=== PATIENT | female | born 1990 | race Caucasian/White ===

== ENCOUNTER 2017-01-04 19:46 | Emergency (ER) | payer MEDICAID ==
[2017-01-04] MEDS ORDERED: NORMAL SALINE 1000 ML 1,000 ML IV ONE (20:31)
--- NOTE | 2017-01-04 20:32 | ER Document Report ---
ED Medical Screen (RME) - General Chief Complaint: Vomiting Stated Complaint: VOMITING Time Seen by Provider: 01/04/17 20:31 Notes: Patient states that today she had the sudden onset of left-sided abdominal pain with nausea and vomiting. No problems with stools or urine. No history of abdominal surgeries other than a . TRAVEL OUTSIDE OF THE [place] IN LAST 30 DAYS: No - Related Data Allergies/Adverse Reactions: No Known Allergies Allergy (Verified 01/04/17 20:25) Home Medications: Current Home Medications Metformin HCl 1 tab PO QHS 01/04/17 [History] Paroxetine HCl [Paxil 20 mg Tablet] 1 tab PO QHS 01/04/17 [History] Past Medical History Renal/ Medical History: Denies: Hx Peritoneal Dialysis - Immunizations Hx Diphtheria, Pertussis, Tetanus Vaccination: Yes Physical Exam - Vital signs Vitals: Temp Pulse Resp BP Pulse Ox 98.6 F 64 20 142/93 H 98 01/04/17 20:13 01/04/17 20:13 01/04/17 20:13 01/04/17 20:13 01/04/17 20:13 Course - Vital Signs Vital signs: Temp Pulse Resp BP Pulse Ox 98.6 F 64 20 142/93 H 98 01/04/17 20:13 01/04/17 20:13 01/04/17 20:13 01/04/17 20:13 01/04/17 20:13
[2017-01-04 21:26] LABS: ABSOLUTE BASOPHILS # (AUTO) 0.2 10^3/uL (0.0-0.2); ABSOLUTE EOSINOPHILS # (AUTO) 0.8 10^3/uL (0.0-0.6); ABSOLUTE LYMPHOCYTES (AUTO) 4.5 10^3/uL (0.5-4.7); ABSOLUTE MONOCYTES (AUTO) 1.2 10^3/uL (0.1-1.4); BASOPHILS % (AUTO) 1.2 % (0-2); HEMATOCRIT 46.2 % (36.0-47.0); HEMOGLOBIN 16.1 g/dL (12.0-15.5); HGB HCT DIFFERENCE 2.1; LYMPHOCYTES % (AUTO) 26.7 % (13-45); MEAN CORPUSCULAR HEMOGLOBIN 30.4 pg (27.0-33.4); MEAN CORPUSCULAR HGB CONC 34.9 g/dL (32.0-36.0); MEAN CORPUSCULAR VOLUME 87 fl (80-97); MONOCYTES % (AUTO) 7.2 % (3-13); RED CELL DISTRIBUTION WIDTH 13.3 % (11.5-14.0); SEGMENTED NEUTROPHILS % (AUTO) 59.9 % (42-78); WHITE BLOOD COUNT 16.7 10^3/uL (4.0-10.5)
--- NOTE | 2017-01-04 21:33 | ER Document Report ---
ED General - General Chief Complaint: Vomiting Stated Complaint: VOMITING Time Seen by Provider: 01/04/17 20:31 Notes: Patient is a 26-year-old female presents emergency department complaining of lower abdominal pain after eating pizza earlier this afternoon and approximately 6 episodes of emesis. Patient denies any right upper quadrant pain or epigastric pain and states that she knows a dull ache in her lower abdomen. Patient states that she does have history of PCOS. States that her last mental period was approximately 3 weeks ago. TRAVEL OUTSIDE OF THE [place] IN LAST 30 DAYS: No - Related Data Allergies/Adverse Reactions: No Known Allergies Allergy (Verified 01/04/17 20:25) Home Medications: Current Home Medications Metformin HCl 1 tab PO QHS 01/04/17 [History] Paroxetine HCl [Paxil 20 mg Tablet] 1 tab PO QHS 01/04/17 [History] Past Medical History - Social History Smoking Status: Smoker,Current Status Unk Family History: Reviewed & Not Pertinent Patient has suicidal ideation: No Patient has homicidal ideation: No Renal/ Medical History: Denies: Hx Peritoneal Dialysis Past Surgical History: Reports: Hx Section - Immunizations Hx Diphtheria, Pertussis, Tetanus Vaccination: Yes Review of Systems - Review of Systems Constitutional: No symptoms reported Cardiovascular: No symptoms reported Respiratory: No symptoms reported Gastrointestinal: See HPI - For review -: Yes All other systems reviewed and negative Physical Exam - Vital signs Vitals: Temp Pulse Resp BP Pulse Ox 98.6 F 64 20 142/93 H 98 01/04/17 20:13 01/04/17 20:13 01/04/17 20:13 01/04/17 20:13 01/04/17 20:13 - Notes Notes: PHYSICAL EXAM GENERAL: Alert, interacts well. HEAD: Normocephalic, atraumatic. EYES: Pupils equal, round, and reactive to light. Extraocular movements intact. ENT: Oral mucosa moist, tongue midline. NECK: Full range of motion. Supple. Trachea midline. LUNGS: Clear to auscultation bilaterally, no wheezes, rales, or rhonchi. No respiratory distress. HEART: Regular rate and rhythm. No murmurs, gallops, or rubs. ABDOMEN: Soft, nondistended, nontender. No guarding, rebound, or rigidity.. Bowel sounds present in all 4 quadrants. EXTREMITIES: Moves all 4 extremities spontaneously. No edema, radial and dorsalis pedis pulses 2/4 bilaterally. No cyanosis. NEUROLOGICAL: Alert and oriented x4. Normal speech. PSYCH: Normal affect, normal mood. SKIN: Warm, dry, normal turgor. No rashes or lesions noted. Course - Re-evaluation Re-evalutation: 01/04/17 22:00 Patient is a 26-year-old female is hemodynamically stable, no acute distress afebrile. Mild elevation in CBC white blood cell count likely related to patient's emesis without evidence of left shift. Chemistry panel all normal without evidence of acute kidney injury, elevation in LFTs or lipase. Urinalysis no evidence of , urinary tract infection. Patient clinically feels much better after IV fluids and nausea medication. given the patient has a history of PCOS and is likely due for her period next week likely related to that otherwise patient is hemodynamically stable for discharge. - Vital Signs Vital signs: Temp Pulse Resp BP Pulse Ox 98.6 F 78 18 123/65 99 01/04/17 20:13 01/04/17 23:25 01/04/17 23:25 01/04/17 23:25 01/04/17 23:25 - Laboratory Result Diagrams: 01/04/17 21:15 01/04/17 21:50 Laboratory results interpreted by me: 01/04/17 01/04/17 21:15 21:50 WBC 16.7 H RBC 5.30 H Hgb 16.1 H Absolute Neutrophils 10.0 H Absolute Eosinophils 0.8 H Calcium 11.1 H - Diagnostic Test Radiology reviewed: Image reviewed, Reports reviewed Discharge - Discharge Clinical Impression: Vomiting Qualifiers: Vomiting type: unspecified Vomiting Intractability: non-intractable Nausea presence: with nausea Qualified Code(s): R11.2 - Nausea with vomiting, unspecified Condition: Good Disposition: HOME, SELF-CARE Instructions: Abdominal Pain ([facility]), Antinausea Medication ([facility]), Intravenous ( IV) Fluids ([facility]), Vomiting ([facility]) Additional Instructions: Patients should be encouraged to eat as tolerated. Smaller meals may be less likely to induce vomiting than larger ones. Henry, low residue foods may also be better tolerated than others. For healthy adults with acute viral gastroenteritis without signs of dehydration , sport drinks, diluted fruit juices, and other flavored soft drinks augmented with saltine crackers and broths or soups can meet the fluid and salt needs in almost all cases. Broiled starches/cereals (potatoes, noodles, rice, wheat, and oat) with some salt are excellent foods to consider. In addition, crackers, bananas, yogurt, soups, and boiled vegetables can also be consumed. Prescriptions: Ondansetron [Zofran Odt 4 mg Tablet] 1 - 2 tab PO Q4H PRN #15 tab.rapdis PRN Reason: For Nausea/Vomiting Forms: Return to Work
[2017-01-04] MEDS ORDERED: MORPHINE SULFATE 10 MG/ML INJ IV ONE (22:20)
[2017-01-04 22:35] LABS: ALANINE AMINOTRANSFERASE 38 U/L (9-52); ALKALINE PHOSPHATASE 68 U/L (38-126); ANION GAP 11 (5-19); ASPARTATE AMINO TRANSFERASE 19 U/L (14-36); BILIRUBIN,DIRECT 0.4 mg/dL (0.0-0.4); BILIRUBIN,TOTAL 0.4 mg/dL (0.2-1.3); BLOOD UREA NITROGEN 9 mg/dL (7-20); CALCIUM 11.1 mg/dL (8.4-10.2); CARBON DIOXIDE 28 mmol/L (22-30); CHLORIDE 103 mmol/L (98-107); GLUCOSE 93 mg/dL (75-110); POTASSIUM 3.9 mmol/L (3.6-5.0); TOTAL PROTEIN 6.5 g/dL (6.3-8.2)
[2017-01-04 22:40] LABS: APPEARANCE,URINE CLEAR; BILIRUBIN,URINE NEGATIVE (NEGATIVE); GLUCOSE, URINE NEGATIVE (NEGATIVE); KETONES,URINE NEGATIVE (NEGATIVE); LEUKOCYTE ESTERASE,URINE NEGATIVE (NEGATIVE); NITRITE,URINE NEGATIVE (NEGATIVE); PROTEIN,URINE NEGATIVE (NEGATIVE); URINE SPECIFIC GRAVITY 1.005; UROBILINOGEN,URINE NEGATIVE mg/dL (<2.0)
[2017-01-04] MEDS ORDERED: ONDANSETRON HCL INJ/PF 4 MG/2 ML SDV IV ONE (22:42)
--- NOTE | 2017-01-04 23:00 | RADIOLOGY REPORT (SQ) ---
EXAM DESCRIPTION: ACUTE ABDOMEN SERIES COMPLETED DATE/TIME: 01/04/2017 10:53 pm REASON FOR STUDY: lower abdominal pain, nausea COMPARISON: None. NUMBER OF VIEWS: Three views. TECHNIQUE: Frontal chest, supine abdomen and upright/decubitus abdomen radiographic images acquired. LIMITATIONS: None. FINDINGS: CHEST: Lungs clear of infiltrates. FREE AIR: None. No abnormal gas collections. BOWEL GAS PATTERN: Nonobstructive pattern. No dilated loops or air fluid levels. CALCIFICATIONS: No suspicious calcifications. HARDWARE: None in the abdomen. SOFT TISSUES: No gross mass or suggestion of organomegaly. BONES: No acute fracture. No worrisome bone lesions. OTHER: No other significant finding. IMPRESSION: NO RADIOGRAPHIC EVIDENCE FOR ACUTE ABDOMINAL DISEASE. TECHNICAL DOCUMENTATION: JOB ID: [id number] [employer]- All Rights Reserved
[2017-01-04 23:26] VITALS: BP 123/65
== END 2017-01-04 23:25 | disposition home or self-care (01) ==
LOC: ER 19:46
DX: R11.2 Nausea with vomiting, unspecified (principal); E28.2 Polycystic ovarian syndrome; R10.30 Lower abdominal pain, unspecified; D72.829 Elevated white blood cell count, unspecified
CPT/HCPCS: 99284; 96361; 96374; 36415; 83690; 85025; 81025; 80053; 81001; 74022; J2270; J7030

== ENCOUNTER → 2017-02-28 | Emergency (ER) | payer SELFPAY ==
--- NOTE | 2017-03-01 09:51 | RADIOLOGY REPORT (SQ) ---
EXAM DESCRIPTION: CHEST PA/LAT COMPLETED DATE/TIME: 03/01/2017 3:12 am REASON FOR STUDY: COUGH/FEVER COMPARISON: None. TECHNIQUE: Frontal and lateral radiographic views of the chest acquired. NUMBER OF VIEWS: Two view. LIMITATIONS: None. FINDINGS: LUNGS AND PLEURA: No evidence of consolidating infiltrate , pleural effusion , or pn eumothorax. MEDIASTINUM AND HILAR STRUCTURES: No masses or contour abnormalities. HEART AND VASCULATURE: Heart normal size. No evidence for failure. BONY STRUCTURES: No acute findings. HARDWARE: None. OTHER: No other significant finding. IMPRESSION: NO SIGNIFICANT RADIOGRAPHIC FINDING IN THE CHEST. TECHNICAL DOCUMENTATION: JOB ID: [id number]
== END ==
LOC: ER 12:03
DX: J06.9 Acute upper respiratory infection, unspecified (principal); R06.2 Wheezing; R50.9 Fever, unspecified; R05 Cough; R09.81 Nasal congestion; R09.89 Other specified symptoms and signs involving the circulatory and respiratory systems; F17.200 Nicotine dependence, unspecified, uncomplicated
CPT/HCPCS: 71046; 99283

== ENCOUNTER 2017-05-28 03:07 | Emergency (ER) | payer SELFPAY ==
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
[2017-05-28 03:44] LABS: ABSOLUTE BASOPHILS # (AUTO) 0.1 10^3/uL (0.0-0.2); ABSOLUTE EOSINOPHILS # (AUTO) 0.2 10^3/uL (0.0-0.6); ABSOLUTE LYMPHOCYTES (AUTO) 2.3 10^3/uL (0.5-4.7); ABSOLUTE NEUT (AUTO) 9.1 10^3/uL (1.7-8.2); BASOPHILS % (AUTO) 1.2 % (0-2); EOSINOPHILS % (AUTO) 1.9 % (0-6); HEMATOCRIT 43.2 % (36.0-47.0); HEMOGLOBIN 15.2 g/dL (12.0-15.5); LYMPHOCYTES % (AUTO) 18.1 % (13-45); MEAN CORPUSCULAR HEMOGLOBIN 30.3 pg (27.0-33.4); MEAN CORPUSCULAR HGB CONC 35.3 g/dL (32.0-36.0); MEAN CORPUSCULAR VOLUME 86 fl (80-97); MONOCYTES % (AUTO) 7.8 % (3-13); PLATELET COUNT 296 10^3/uL (150-450); RED BLOOD COUNT 5.03 10^6/uL (3.72-5.28); RED CELL DISTRIBUTION WIDTH 12.7 % (11.5-14.0); TOTAL CELLS COUNTED % (AUTO) 100 %; WHITE BLOOD COUNT 12.8 10^3/uL (4.0-10.5)
[2017-05-28 03:52] LABS: ALANINE AMINOTRANSFERASE 43 U/L (9-52); ALBUMIN 4.6 g/dL (3.5-5.0); ALKALINE PHOSPHATASE 78 U/L (38-126); ANION GAP 15 (5-19); ASPARTATE AMINO TRANSFERASE 24 U/L (14-36); BILIRUBIN,DIRECT 0.2 mg/dL (0.0-0.4); BILIRUBIN,TOTAL 0.3 mg/dL (0.2-1.3); BLOOD UREA NITROGEN 6 mg/dL (7-20); CALCIUM 10.4 mg/dL (8.4-10.2); CARBON DIOXIDE 22 mmol/L (22-30); CHLORIDE 107 mmol/L (98-107); GLUCOSE 111 mg/dL (75-110); POTASSIUM 3.9 mmol/L (3.6-5.0); SODIUM 143.6 mmol/L (137-145); TOTAL PROTEIN 7.2 g/dL (6.3-8.2)
[2017-05-28 03:53] LABS: ACETAMINOPHEN < 10 ug/mL (10-30); ALCOHOL < 10 mg/dL (NONE DETECTED); SALICYLATE < 1.0 mg/dL (2.0-20.0)
[2017-05-28 05:22] LABS: APPEARANCE,URINE CLEAR; BILIRUBIN,URINE NEGATIVE (NEGATIVE); COLOR,URINE YELLOW; GLUCOSE, URINE NEGATIVE (NEGATIVE); KETONES,URINE NEGATIVE (NEGATIVE); LEUKOCYTE ESTERASE,URINE NEGATIVE (NEGATIVE); NITRITE,URINE NEGATIVE (NEGATIVE); PROTEIN,URINE NEGATIVE (NEGATIVE); URINE SPECIFIC GRAVITY 1.008; UROBILINOGEN,URINE NEGATIVE mg/dL (<2.0)
[2017-05-28] MEDS ORDERED: NICOTINE 14 MG/24 HR PATCH.TD24 TD ONE (05:27)
[2017-05-28 05:34] LABS: URINE AMPHETAMINES SCREEN NEGATIVE; URINE BARBITURATES SCREEN NEGATIVE; URINE BENZODIAZEPINES SCREEN NEGATIVE; URINE COCAINE SCREEN NEGATIVE; URINE MARIJUANA (THC) SCREEN NEGATIVE; URINE METHADONE SCREEN NEGATIVE; URINE PHENCYCLIDINE SCREEN NEGATIVE
[2017-05-28] MEDS ORDERED: NORMAL SALINE 1000 ML 1,000 ML IV ONE (06:36)
[2017-05-28] MEDS ORDERED: ONDANSETRON HCL INJ/PF 4 MG/2 ML SDV IV ONE (08:12)
--- NOTE | 2017-05-28 11:08 | ER Document Report ---
Doctor's Note Notes: 05/28/17 11:06 Rounds: Chart reviewed and patient interviewed. Being evaluated for an overdose of metformin, alprazolam, and hydrocodone. Says she intended to kill herself. Feels worsening depression and suicidal thoughts. She has been nauseated and vomiting and that her primary complaint at this time. Vital signs are all essentially normal. Lab studies showed a white count of 12,500 and a lactate level of 3.2, on repeat 2.4. Drug screen positive for opiates. Patient appears to be medically stable for transfer or discharge. Angelica Mayer MD
[2017-05-28] MEDS ORDERED: ONDANSETRON 4 MG TAB.RAPDIS PO PRN (11:45)
[2017-05-28] MEDS ORDERED: CITALOPRAM HYDROBROMIDE 20 MG TABLET PO SCH (15:00)
[2017-05-28] MEDS: BUSPIRONE HCL 10 MG TABLET PO SCH (18:24)
--- NOTE | 2017-05-28 21:01 | EKG REPORT ---
SEVERITY:- OTHERWISE NORMAL ECG - SINUS RHYTHM BORDERLINE LEFT AXIS DEVIATION : Confirmed by: Yoly Key 28-May-2017 21:00:55
[2017-05-29] MEDS ORDERED: CITALOPRAM HYDROBROMIDE 20 MG TABLET PO ONE (10:00)
--- NOTE | 2017-05-29 11:13 | ER Document Report ---
Doctor's Note Notes: 05/29/17 11:12 Patient has been examined by the behavior health team, recommendations from Dr. Prince are to start Celexa 20 mg daily and BuSpar 10 mg twice a day. At this point the patient is remorseful for having tried to commit suicide, states that she was feeling overwhelmed by her current circumstances, family has responded to phone call is by the behavioral health team and is supportive of the idea of the patient being discharged home, patient is also eager to be discharged to home. States she feels safe and does not feel like she will try to hurt herself again. Patient overdosed on metformin, her last set of labs at 7:30 AM still showed a remaining acidosis with lactic acid of 2.4 consistent with a metformin overdose. The behavioral health team feels she is cleared from the behavioral health standpoint however the patient is not yet medically cleared for discharge. Patient understands this and we will continue to track her lactic acid.
[2017-05-29] MEDS: BUSPIRONE HCL 10 MG TABLET PO SCH (11:15)
[2017-05-29 12:01] VITALS: BP 113/56
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
--- NOTE | 2017-05-29 12:42 | PSYCHOLOGICAL NOTE ---
Psych Note - Psych Note Psych Note: Reason for consult: Suicidal ideation, intentional overdose Consent Permissions: Lynsey Zamora, Mother 27-year-old female with a history of depression, anxiety, PCOS, asthma presents via EMS from home after taking Metformin, alprazolam and hydrocodone. Patient states she took one alprazolam, 3 hydrocodone's and an unknown amount of metformin with intentions of killing herself. Patient states she vomited approximately 30 minutes after taking the medications. Clinician conducted check in with patient Patient is sitting up in bed and smiling at clinician upon entering. When discussing therapeutic outpatient services patient stated "it is about that time , I need to talk to someone...This was so out there for me...I do not think it is actually hit me that I tried to actually kill myself." Patient disclosed that she has been having a lot of stress coming from her upcoming divorce. 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 She reports that trying to balance working, spending time with her son, studying, and watching her friend's son has been stressful. She continues to report the other night her friend/significant other "said very mean things to me...things I can't believe he said." Patient discloses she is nervous about her job and going home knowing her family is not happy with her. She reports her sister told her that when she comes home she "will not be left alone at all and I have no say it." Patient discloses she does not mind her family being overprotective right now and understands this is probably normal reaction to what she did. Clinician spoke with patient's mother, Lynsey, who disclosed the patient has a strong support network with family and all the family will be part of the discharge plan to ensure the patient does not have access to medications or weapons and follows up with her outpatient mental health services. Medication recommendations per [facility]'s contracted psychiatrist, Dr. Niki MD are as follows: 1. Celexa 20 mg daily for depression 2. BuSpar 10 mg twice daily for anxiety Diagnosis 311 (F32.9) unspecified depressive disorder V61.03 (Z63.5) disruption of family by separation and divorce Impression\\plan: Patient is recommended for rescind of IVC and is considered cleared from acute psychiatric services. Patient's mood is euthymic with congruent affect as evidenced by sitting up smiling and openly engaging with clinician and her environment. Patient has a strong support network with family who all agreed to ensure patient follows up with her mental health treatment. Patient denied suicidal ideation was able to demonstrate insight in identifying triggers and problemsolving in her treatment and positive changes to her psychosocial stressors. Patient openly and calmly discussed her concerns stemming from her intentional overdose i.e. family relations and her job. Patient is willing to follow-up with therapeutic services in addition to medication management. Dr. Christianson was consulted on the care and management of this patient; attending physician is in agreement with recommendations and disposition.
[2017-05-29] MEDS ORDERED: RINGERS SOLUTION,LACTATED 1,000 ML IV ONE (13:35)
[2017-05-29 15:54] LABS: ALANINE AMINOTRANSFERASE 42 U/L (9-52); ALBUMIN 4.3 g/dL (3.5-5.0); ALKALINE PHOSPHATASE 61 U/L (38-126); ANION GAP 13 (5-19); ASPARTATE AMINO TRANSFERASE 27 U/L (14-36); BILIRUBIN,DIRECT 0.3 mg/dL (0.0-0.4); BILIRUBIN,TOTAL 0.3 mg/dL (0.2-1.3); BLOOD UREA NITROGEN 11 mg/dL (7-20); CALCIUM 9.9 mg/dL (8.4-10.2); CARBON DIOXIDE 23 mmol/L (22-30); CHLORIDE 104 mmol/L (98-107); GLUCOSE 140 mg/dL (75-110); SODIUM 140.1 mmol/L (137-145); TOTAL PROTEIN 7.1 g/dL (6.3-8.2)
== END 2017-05-29 18:00 | disposition home or self-care (01) ==
LOC: ER 03:07
DX: T38.3X2A Poisoning by insulin and oral hypoglycemic [antidiabetic] drugs, intentional self-harm, initial encounter (principal); T42.4X2A Poisoning by benzodiazepines, intentional self-harm, initial encounter; T40.2X2A Poisoning by other opioids, intentional self-harm, initial encounter; R11.0 Nausea; R10.84 Generalized abdominal pain; X58.XXXA Exposure to other specified factors, initial encounter; Y92.009 Unspecified place in unspecified non-institutional (private) residence as the place of occurrence of the external cause; F32.9 Major depressive disorder, single episode, unspecified; F41.9 Anxiety disorder, unspecified; Z63.5 Disruption of family by separation and divorce
CPT/HCPCS: 93005; 99285; 96361; 96374; 36415; 82962; 80307 ×4; 84703; 85025; 80053; 81001; 83605; 93010; J2405; J7030

== ENCOUNTER 2018-07-27 09:38 | Emergency (ER) | payer SELFPAY ==
[2018-07-27 09:43] VITALS: BP 127/72
--- NOTE | 2018-07-27 09:54 | ER Document Report ---
HPI - HPI Time Seen by Provider: 07/27/18 09:49 Pain Level: 2 Notes: Patient is a 28-year-old female with a history of asthma who presents complaining of nasal congestion/discharge, postnasal drip, right worse than left ear pain, dry cough, and occasional diarrhea. Patient states that her cold symptoms have been for about 5 to 7 days with ear pain starting over the last 1 to 2 days. She is eating and drinking without difficulty. She is urinating normally. Denies drug allergies. No other concerns or complaints. Denies any headache, fever, neck pain, sore throat, chest pain, palpitations, syncope, shortness of breath, wheeze, dyspnea, abdominal pain, nausea/vomiting, urinary retention, dysuria, hematuria, or rash. - ROS Systems Reviewed and Negative: Yes All other systems reviewed and negative - REPRODUCTIVE Reproductive: DENIES: : Past Medical History - Social History Smoking Status: Current Every Day Smoker Family History: Reviewed & Not Pertinent, DM Pulmonary Medical History: Reports: Hx Asthma Renal/ Medical History: Denies: Hx Peritoneal Dialysis Psychiatric Medical History: Reports: Hx Anxiety, Hx Depression Past Surgical History: Reports: Hx Section - Immunizations Hx Diphtheria, Pertussis, Tetanus Vaccination: Yes Vertical Provider Document - CONSTITUTIONAL Agree With Documented VS: Yes Notes: PHYSICAL EXAMINATION: GENERAL: Well-appearing, well-nourished and in no acute distress. A&Ox4. Answers questions appropriately. Moves comfortably w/o notable distress HEAD: Atraumatic, normocephalic. EYES: Pupils equal round and reactive to light, extraocular movements intact, sclera anicteric, conjunctiva are normal. ENT: Lt EAC wnl. + mild inflammation and tenderness to rt EAC/Tragus. No mastoid tenderness. TM's intact b/l without erythema, fluid, or perforation. Nares patent and with clear discharge. oropharynx no erythema without exudates. No tonsilar hypertrophy without erythema or exudate. No palatine shift. Uvula midline. No tongue protrusion. No drooling, hoarseness, or airway compromise. Moist mucous membranes. No sinus tenderness. NECK: Normal range of motion, supple without lymphadenopathy. No rigidity/meningismus. LUNGS: Breath sounds clear to auscultation bilaterally and equal. No wheezes rales or rhonchi. No retractions HEART: Regular rate and rhythm without murmurs, rubs, gallops. ABDOMEN: Soft, nontender, nondistended abdomen. No guarding, no rebound. Normal bowel sounds present. No CVA tenderness bilaterally. NEUROLOGICAL: Normal speech, normal gait. PSYCH: Normal mood, normal affect. SKIN: Warm, Dry, normal turgor, no rashes or lesions noted. - INFECTION CONTROL TRAVEL OUTSIDE OF THE [place] IN LAST 30 DAYS: No Course - Re-evaluation Re-evalutation: 07/27/18 09:57 Patient is an afebrile, well-hydrated, 28-year-old female who presents to the emergency department with an acute URI which I suspect to be viral as well as a mild acute otitis externa of the right ear. Vitals are acceptable without significant tachycardia, tachypnea, or hypoxia. PE is otherwise unremarkable. Patient is nontoxic-appearing is able to tolerate p.o. without difficulty. No labs or imaging warranted at this time. Low suspicion for any sepsis, meningitis, severe dehydration, respiratory compromise, mastoiditis, or other systemic emergent condition at this time. Patient is aware that condition can change from initial presentation and she needs to monitor symptoms closely and seek medical attention with any acute changes. I will send her home with [facility] for Ciprodex. Conservative measures for symptoms otherwise. Recheck with your PCM in 3 to 5 days. Return to the ED with any other worsening/concerning symptoms. Patient is in agreement. - Vital Signs Vital signs: Temp Pulse Resp BP Pulse Ox 98.2 F 84 15 127/72 H 99 07/27/18 09:42 07/27/18 09:42 07/27/18 09:42 07/27/18 09:42 07/27/18 09:42 Discharge - Discharge Clinical Impression: Acute URI Otitis externa of right ear Qualifiers: Otitis externa type: unspecified type Chronicity: acute Qualified Code(s): H60.501 - Unspecified acute noninfective otitis externa, right ear Condition: Stable Disposition: HOME, SELF-CARE Instructions: Use of Ear Drops ([facility]), Otitis Externa ([facility]), Upper Respiratory Illness ([facility]) Additional Instructions: Maintain adequate fluid intake Take meds as directed tylenol/ibuprofen as needed Avoid Q-tips in the ears over the counter cold medication as needed for symptoms F/u: with your PCM in 3-5 days for a recheck Consider consult with ENT Return to the ED with any fever, dizziness, tinnitus, headaches, worsening pain, chest pain, palpitations, syncope, neck pain/stiffness, shortness of breath, wheezing, drooling, trouble swallowing/breathing, abdominal pain, n/v/d, rash, or worsening/concerning symptoms otherwise. Prescriptions: Ciprofloxacin HCl/Dexameth [Ciprodex Otic Suspension 7.5 ml Bottle] 4 drop OT BID #1 bottle Forms: Elevated Blood Pressure, Smoking Cessation Education, Return to Work Referrals: WAQAR LUNA DO [ASSOCIATE] - Follow up as needed [facility] [Provider Group] - Follow up as needed
== END 2018-07-27 10:00 | disposition home or self-care (01) ==
LOC: ER 09:38
DX: H60.501 Unspecified acute noninfective otitis externa, right ear (principal); J06.9 Acute upper respiratory infection, unspecified; R09.81 Nasal congestion; R09.82 Postnasal drip; R05 Cough; R19.7 Diarrhea, unspecified; J45.909 Unspecified asthma, uncomplicated
CPT/HCPCS: 99282

== ENCOUNTER 2018-08-28 16:21 | Emergency (ER) | payer SELFPAY ==
--- NOTE | 2018-08-28 17:30 | ER Document Report ---
ED Medical Screen (RME) - General Chief Complaint: Abdominal Pain Stated Complaint: RIGHT SIDE PAIN, VOMITING, DIARRHEA Time Seen by Provider: 08/28/18 17:25 Mode of Arrival: Ambulatory Information source: Patient Notes: Patient presents emergency department with complaints of right upper quad abdominal pain that started this morning. Reports she ate some eggs, started hurting thought it might be because she was hungry still, tried to eat some more but she could not because she was hurting. Reports she does have history of kidney stones once. Denies pain with void. Denies fever reports some vomiting diarrhea today. Patient right upper quad tender to palpation as well as right flank. I have greeted and performed a rapid initial assessment of this patient. A comprehensive ED assessment and evaluation of the patient, analysis of test results and completion of the medical decision making process will be conducted by additional ED providers. Dictation of this chart was performed using voice recognition software; therefore, there may be some unintended grammatical errors. TRAVEL OUTSIDE OF THE [place] IN LAST 30 DAYS: No - Related Data Allergies/Adverse Reactions: No Known Allergies Allergy (Verified 08/28/18 16:22) Past Medical History Pulmonary Medical History: Reports: Hx Asthma Renal/ Medical History: Denies: Hx Peritoneal Dialysis Psychiatric Medical History: Reports: Hx Anxiety, Hx Depression Past Surgical History: Reports: Hx Section - Immunizations Hx Diphtheria, Pertussis, Tetanus Vaccination: Yes Physical Exam - Vital signs Vitals: Temp Pulse Resp BP Pulse Ox 98.2 F 86 16 136/83 H 98 08/28/18 16:39 08/28/18 16:39 08/28/18 16:39 08/28/18 16:39 08/28/18 16:39 Course - Vital Signs Vital signs: Temp Pulse Resp BP Pulse Ox 98.2 F 86 16 136/83 H 98 08/28/18 16:39 08/28/18 16:39 08/28/18 16:39 08/28/18 16:39 08/28/18 16:39
[2018-08-28 18:11] LABS: ABSOLUTE BASOPHILS # (AUTO) 0.1 10^3/uL (0.0-0.2); ABSOLUTE EOSINOPHILS # (AUTO) 0.6 10^3/uL (0.0-0.6); ABSOLUTE LYMPHOCYTES (AUTO) 3.8 10^3/uL (0.5-4.7); ABSOLUTE MONOCYTES (AUTO) 1.1 10^3/uL (0.1-1.4); ABSOLUTE NEUT (AUTO) 10.9 10^3/uL (1.7-8.2); BASOPHILS % (AUTO) 0.8 % (0-2); EOSINOPHILS % (AUTO) 3.4 % (0-6); HEMATOCRIT 45.5 % (36.0-47.0); HEMOGLOBIN 15.9 g/dL (12.0-15.5); LYMPHOCYTES % (AUTO) 22.9 % (13-45); MEAN CORPUSCULAR HEMOGLOBIN 30.3 pg (27.0-33.4); MEAN CORPUSCULAR HGB CONC 34.9 g/dL (32.0-36.0); MEAN CORPUSCULAR VOLUME 87 fl (80-97); MONOCYTES % (AUTO) 6.6 % (3-13); PLATELET COUNT 349 10^3/uL (150-450); RED BLOOD COUNT 5.24 10^6/uL (3.72-5.28); RED CELL DISTRIBUTION WIDTH 12.7 % (11.5-14.0); SEGMENTED NEUTROPHILS % (AUTO) 66.3 % (42-78); TOTAL CELLS COUNTED % (AUTO) 100 %; WHITE BLOOD COUNT 16.4 10^3/uL (4.0-10.5)
[2018-08-28 18:16] LABS: APPEARANCE,URINE CLEAR; BILIRUBIN,URINE NEGATIVE (NEGATIVE); COLOR,URINE STRAW; GLUCOSE, URINE NEGATIVE (NEGATIVE); KETONES,URINE NEGATIVE (NEGATIVE); LEUKOCYTE ESTERASE,URINE NEGATIVE (NEGATIVE); NITRITE,URINE NEGATIVE (NEGATIVE); PROTEIN,URINE NEGATIVE (NEGATIVE); URINE SPECIFIC GRAVITY 1.006; UROBILINOGEN,URINE NEGATIVE mg/dL (<2.0)
[2018-08-28 18:29] LABS: ALANINE AMINOTRANSFERASE 33 U/L (9-52); ALBUMIN 4.9 g/dL (3.5-5.0); ALKALINE PHOSPHATASE 86 U/L (38-126); ANION GAP 10 (5-19); ASPARTATE AMINO TRANSFERASE 28 U/L (14-36); BILIRUBIN,DIRECT 0.2 mg/dL (0.0-0.4); BILIRUBIN,TOTAL 0.4 mg/dL (0.2-1.3); BLOOD UREA NITROGEN 7 mg/dL (7-20); CALCIUM 10.6 mg/dL (8.4-10.2); CARBON DIOXIDE 29 mmol/L (22-30); CHLORIDE 103 mmol/L (98-107); GLUCOSE 90 mg/dL (75-110); LIPASE 91.6 U/L (23-300); POTASSIUM 4.4 mmol/L (3.6-5.0); SODIUM 142.3 mmol/L (137-145); TOTAL PROTEIN 8.1 g/dL (6.3-8.2)
--- NOTE | 2018-08-28 19:45 | RADIOLOGY REPORT (SQ) ---
EXAM DESCRIPTION: U/S ABDOMEN LIMITED W/O DOP COMPLETED DATE/TIME: 08/28/2018 7:27 pm REASON FOR STUDY: ruq abd pain COMPARISON: None. TECHNIQUE: Dynamic and static grayscale images acquired of the abdomen and recorded on PACS. Additio nal selected color Doppler and spectral images recorded. LIMITATIONS: None. FINDINGS: PANCREAS: No masses. Visualized pancreatic duct normal caliber. LIVER: No masses. Echotexture mildly increased consistent with fatty infiltration. LIVER VASCULATURE: Normal directional flow of the main portal vein and hepatic veins. GALLBLADDER: No stones. Normal wall thickness. No pericholecystic fluid. ULTRASOUND-DETECTED TOLEDO'S SIGN: Negative. INTRAHEPATIC DUCTS AND COMMON DUCT: CBD and intrahepatic ducts normal caliber. No filling defects. INFERIOR VENA CAVA: Normal flow. AORTA: No aneurysm identified. RIGHT KIDNEY: Normal size. Normal echogenicity. No solid or suspicious masses. No hydronephros is. No calcifications. PERITONEAL AND RIGHT PLEURAL SPACE: No ascites or effusions. OTHER: No other significant findings. IMPRESSION: Mild fatty infiltration of the liver. Normal gallbladder. TECHNICAL DOCUMENTATION: JOB ID: [id number] [place]-72 2010 [employer]- All Rights Reserved Reading location - IP/workstation name: [facility]
--- NOTE | 2018-08-28 20:24 | ER Document Report ---
ED General - General Chief Complaint: Abdominal Pain Stated Complaint: RIGHT SIDE PAIN, VOMITING, DIARRHEA Time Seen by Provider: 08/28/18 17:25 Mode of Arrival: Ambulatory Notes: Patient is a 28-year-old female who presents to the emergency department with a chief complaint of right upper quadrant abdominal pain. She states that she did not really have a lot of pain, but she did have some nausea, vomiting, and carole rrhea. Patient states that the little pain she feels starts in her front right upper quadrant and radiates back. She denies any hematochezia and hematemesis. She states that she does feel better. She also states that it hurts when she eats. Past medical history includes PCOS, asthma, depression, and anxiety. Patient is supposed to be on metformin, Symbicort, and albuterol, but she does not have her medications due to not having insurance. Patient admits to having a history of alcohol abuse, but has decreased the amount of alcohol she drinks and only drinks occasionally. TRAVEL OUTSIDE OF THE [place] IN LAST 30 DAYS: No - Related Data Allergies/Adverse Reactions: No Known Allergies Allergy (Verified 08/28/18 16:22) Past Medical History - General Information source: Patient - Social History Smoking Status: Current Every Day Smoker Chew tobacco use (# tins/day): No Frequency of alcohol use: Social Drug Abuse: None Family History: Reviewed & Not Pertinent, DM Patient has suicidal ideation: No Patient has homicidal ideation: No Pulmonary Medical History: Reports: Hx Asthma Renal/ Medical History: Denies: Hx Peritoneal Dialysis Psychiatric Medical History: Reports: Hx Anxiety, Hx Depression Past Surgical History: Reports: Hx Section - Immunizations Hx Diphtheria, Pertussis, Tetanus Vaccination: Yes Review of Systems - Review of Systems Notes: REVIEW OF SYSTEMS: CONSTITUTIONAL : Denies recent illness. Denies recent unintentional weight loss. Denies fever, chills, or sweats. EENT: Denies eye, ear, throat, or mouth pain, discharge, or symptoms. Denies nasal or sinus congestion. CARDIOVASCULAR: Denies chest pain. RESPIRATORY: Denies shortness of breath, cough, congestion, difficulty breathing, or wheezing. GASTROINTESTINAL: See HPI GENITOURINARY: Denies difficulty urinating, burning, blood in urine, urgency or frequency. MUSCULOSKELETAL: Denies neck and back pain. Denies joint pain or swelling. SKIN: Denies rash, itchiness, or lesions HEMATOLOGIC : Denies easy bruising or bleeding. LYMPHATIC: Denies swollen, painful, enlarged glands. NEUROLOGICAL: Denies no numbness or tingling denies weakness. Denies headache. Denies altered mental status. Denies alteration in speech. PSYCHIATRIC: Denies stress, anxiety, alteration in sleep patterns, or depression. All other systems reviewed and negative. Physical Exam - Vital signs Vitals: Temp Pulse Resp BP Pulse Ox 98.2 F 86 16 136/83 H 98 08/28/18 16:39 08/28/18 16:39 08/28/18 16:39 08/28/18 16:39 08/28/18 16:39 - Notes Notes: PHYSICAL EXAMINATION: GENERAL: Appears well, healthy, well-nourished, no acute distress. HEAD: Normocephalic, atraumatic. EYES: PERRL, conjunctiva normal, all extraocular movements intact, sclera nonicteric ENT: Moist mucous membranes. NECK: Supple, no noticeable swelling, redness, rash. Normal range of motion. LUNGS: Equal breath sounds bilaterally and clear to auscultation. No wheezes rales or rhonchi. CARDIOVASCULAR: S1-S2, regular rate, regular rhythm. Radial pulses 2+, normal. ABDOMEN: Normoactive bowel sounds. Soft, mildly tender right upper quadrant, no guarding, no rebound tenderness, and no masses palpated. EXTREMITIES: Normal strength and range of motion, no pitting or edema. No cyanosis. NEUROLOGICAL: Moves all extremities upon command. Strength 5/5 in all extremities. PSYCH: Normal mood, normal affect. SKIN: Warm, dry. No rash, lesions, ulcerations noted. Normal skin turgor. Course - Re-evaluation Re-evalutation: 08/28/18 20:24 Patient's right upper quadrant abdominal ultrasound shows fatty liver infiltrates. No cholelithiasis or cholecystitis noted. I suspect the patient's fatty liver is causing her pain and her symptoms. There is also possibility that she has gastritis. I will start her on Pepcid. She will be sent home with Zofran for nausea. The patient has a small amount of blood in her urine, I have very low suspicion for a renal calculi, as the patient denies any CVA tenderness. Her pain is actually really in her right upper quadrant. This is most likely due to her fatty liver. Is very low for a bowel obstruction, mesenteric ischemia, acute appendicitis, Tiki lithiasis, cholecystitis, colitis, or any life-threatening etiology at this time. I have educated the patient on cutting back on her alcohol use and eating properly. She is in agree ment with this plan. I will refill her metformin, as she does not have a primary care provider at this time. Nor does she have health insurance, therefore I will not refer her the [facility] or [facility]. I have advised her to establish health insurance through a new job she is sta rting. She is in agreement with this plan. Follow-up precautions were given. Verbal discharge instructions were given to the patient. They verbalized understanding. They are stable for discharge. - Vital Signs Vital signs: Temp Pulse Resp BP Pulse Ox 98.2 F 64 16 129/84 H 98 08/28/18 16:39 08/28/18 20:40 08/28/18 20:40 08/28/18 20:40 08/28/18 20:40 - Laboratory Result Diagrams: 08/28/18 17:59 08/28/18 17:59 Laboratory results interpreted by me: 08/28/18 08/28/18 08/28/18 17:59 17:59 17:59 WBC 16.4 H Hgb 15.9 H Absolute Neutrophils 10.9 H Calcium 10.6 H Urine Blood SMALL H Discharge - Discharge Clinical Impression: Right upper quadrant abdominal pain, Fatty liver disease, nonalcoholic, History of PCOS Condition: Stable Disposition: HOME, SELF-CARE Additional Instructions: You were seen today in the emergency department for right-sided abdominal pain, vomiting, and diarrhea. You have fatty liver disease, which may be the cause of your symptoms. Being sent home with Zofran, medication to help with nausea. You are being placed back on your metformin for your PCOS. You are also being sent home with your albuterol inhaler. Please follow-up with a primary care provider in regards to this visit once you get insurance. Prescriptions: Metformin HCl [Glucophage 500 mg Tablet] 500 mg PO BID #60 tablet
[2018-08-28] MEDS ORDERED: ONDANSETRON ODT 4 MG TAB (6 TAB/ER DISP) PO PRN (20:29)
[2018-08-28] MEDS ORDERED: ALBUTEROL SULFATE HFA (90 MCG/PUFF) 8 GM MDI (1 MDI/ER DISP) IH PRN (20:29)
[2018-08-28 20:49] VITALS: BP 129/84
== END 2018-08-28 20:45 | disposition home or self-care (01) ==
LOC: ER 16:21
DX: K76.0 Fatty (change of) liver, not elsewhere classified (principal); R10.11 Right upper quadrant pain; R10.9 Unspecified abdominal pain; M54.9 Dorsalgia, unspecified; F17.200 Nicotine dependence, unspecified, uncomplicated; F10.10 Alcohol abuse, uncomplicated; J45.909 Unspecified asthma, uncomplicated
CPT/HCPCS: 99284; 36415; 83690; 85025; 81025; 80053; 81001; 76705; J3490

== ENCOUNTER 2018-11-11 19:56 | Emergency (ER) | payer SELFPAY ==
[2018-11-11] MEDS ORDERED: ONDANSETRON 4 MG TAB.RAPDIS PO ONE (20:10)
--- NOTE | 2018-11-11 20:10 | ER Document Report ---
ED Medical Screen (RME) - General Chief Complaint: Abdominal Pain Stated Complaint: ABDOMINAL PAIN Time Seen by Provider: 11/11/18 20:06 Mode of Arrival: Ambulatory Information source: Patient Notes: This 28-year-old female presents emergency department with right-sided abdominal pain that started approximately 3 hours ago while she was eating. Reports vomiting denies diarrhea. Reports she was seen here approximately 1 month ago with the same symptoms but these are worse now. Reports she was told she had a fatty liver. Right side tender to palpate. I have greeted and performed a rapid initial assessment of this patient. A comprehensive ED assessment and evaluation of the patient, analysis of test results and completion of the medical decision making process will be conducted by additional ED providers. Dictation of this chart was performed using voice recognition software; therefore, there may be some unintended grammatical errors. TRAVEL OUTSIDE OF THE [place] IN LAST 30 DAYS: No - Related Data Allergies/Adverse Reactions: No Known Allergies Allergy (Verified 08/28/18 16:22) Past Medical History Pulmonary Medical History: Reports: Hx Asthma Renal/ Medical History: Denies: Hx Peritoneal Dialysis Psychiatric Medical History: Reports: Hx Anxiety, Hx Depression Past Surgical History: Reports: Hx Section - Immunizations Hx Diphtheria, Pertussis, Tetanus Vaccination: Yes Physical Exam - Vital signs Vitals: Temp Pulse Resp BP Pulse Ox 97.9 F 75 17 145/96 H 92 11/11/18 19:59 11/11/18 19:59 11/11/18 19:59 11/11/18 19:59 11/11/18 19:59 Course - Vital Signs Vital signs: Temp Pulse Resp BP Pulse Ox 97.9 F 75 17 145/96 H 92 11/11/18 19:59 11/11/18 19:59 11/11/18 19:59 11/11/18 19:59 11/11/18 19:59
[2018-11-11 20:41] LABS: APPEARANCE,URINE CLOUDY; BILIRUBIN,URINE NEGATIVE (NEGATIVE); COLOR,URINE YELLOW; GLUCOSE, URINE NEGATIVE (NEGATIVE); KETONES,URINE NEGATIVE (NEGATIVE); LEUKOCYTE ESTERASE,URINE NEGATIVE (NEGATIVE); NITRITE,URINE NEGATIVE (NEGATIVE); PROTEIN,URINE 30 mg/dL (NEGATIVE); URINE SPECIFIC GRAVITY 1.016; UROBILINOGEN,URINE NEGATIVE mg/dL (<2.0)
[2018-11-11 20:51] LABS: ALBUMIN 4.7 g/dL (3.5-5.0); ALKALINE PHOSPHATASE 86 U/L (38-126); ANION GAP 11 (5-19); ASPARTATE AMINO TRANSFERASE 28 U/L (14-36); BILIRUBIN,DIRECT 0.2 mg/dL (0.0-0.4); BILIRUBIN,TOTAL 0.7 mg/dL (0.2-1.3); BLOOD UREA NITROGEN 7 mg/dL (7-20); CALCIUM 10.3 mg/dL (8.4-10.2); CARBON DIOXIDE 28 mmol/L (22-30); CHLORIDE 102 mmol/L (98-107); GLUCOSE 108 mg/dL (75-110); POTASSIUM 4.2 mmol/L (3.6-5.0); TOTAL PROTEIN 7.7 g/dL (6.3-8.2)
[2018-11-11 21:10] LABS: ABSOLUTE BASOPHILS # (AUTO) 0.2 10^3/uL (0.0-0.2); ABSOLUTE EOSINOPHILS # (AUTO) 0.4 10^3/uL (0.0-0.6); ABSOLUTE NEUT (AUTO) 14.6 10^3/uL (1.7-8.2); BASOPHILS % (AUTO) 0.9 % (0-2); HEMATOCRIT 40.8 % (36.0-47.0); HEMOGLOBIN 14.3 g/dL (12.0-15.5); MEAN CORPUSCULAR HEMOGLOBIN 29.6 pg (27.0-33.4); MEAN CORPUSCULAR VOLUME 85 fl (80-97); MONOCYTES % (AUTO) 5.5 % (3-13); PLATELET COUNT 269 10^3/uL (150-450); RED BLOOD COUNT 4.83 10^6/uL (3.72-5.28); RED CELL DISTRIBUTION WIDTH 12.8 % (11.5-14.0); SEGMENTED NEUTROPHILS % (AUTO) 80.6 % (42-78); TOTAL CELLS COUNTED % (AUTO) 100 %; WHITE BLOOD COUNT 18.2 10^3/uL (4.0-10.5)
--- NOTE | 2018-11-11 22:38 | RADIOLOGY REPORT (SQ) ---
EXAM DESCRIPTION: US ABDOMEN LIMITED COMPLETED DATE/TME: 11/11/2018 20:08 CLINICAL HISTORY: 28 years, Female, right side pain COMPARISON: 08/28/2018 ultrasound TECHNIQUE: Limited right upper quadrant ultrasound LIMITATIONS: None. FINDINGS: Diffusely echogenic appearance to the liver consistent with fatty infiltrative change. No focal liver lesions. No gallstones or gallbladder wall thickening. The CBD measures 1.8 mm. The visualized pancreas, abdominal aorta, right kidney are unremarkable. No ascites IMPRESSION: Fatty infiltrative change to the liver. Remainder is unremarkable copyright 2010 [employer]- All Rights Reserved
--- NOTE | 2018-11-12 00:58 | ER Document Report ---
ED GI/ - General Chief Complaint: Abdominal Pain Stated Complaint: ABDOMINAL PAIN Time Seen by Provider: 11/11/18 20:06 Mode of Arrival: Ambulatory Notes: Patient is a 28-year-old female presents to the emergency department for generalized right flank and right lower quadrant abdominal pain. States this pain started around 1700 hrs. this evening. Patient voices that she did vomit x5 is denying any blood in her emesis. Patient's denying any diarrhea she is denying any fevers. Patient's denying any dysuria or vaginal discharge. Patient states she did note a pink-tinged in her urine. Patient states she was to the facility approximately a month ago with the same complaints. Patient states at that time she was told she had a fatty liver. Past medical history: PCOS, asthma, anxiety, depression, kidney stones Medications: Currently none Allergies: None TRAVEL OUTSIDE OF THE [place] IN LAST 30 DAYS: No - Related Data Allergies/Adverse Reactions: No Known Allergies Allergy (Verified 08/28/18 16:22) Past Medical History - General Information source: Patient - Social History Smoking Status: Current Every Day Smoker Frequency of alcohol use: None Drug Abuse: None Family History: Reviewed & Not Pertinent, DM Patient has suicidal ideation: No Patient has homicidal ideation: No Pulmonary Medical History: Reports: Hx Asthma Renal/ Medical History: Denies: Hx Peritoneal Dialysis Psychiatric Medical History: Reports: Hx Anxiety, Hx Depression Past Surgical History: Reports: Hx Section - Immunizations Hx Diphtheria, Pertussis, Tetanus Vaccination: Yes Review of Systems - Review of Systems Constitutional: denies: Fever EENT: No symptoms reported Cardiovascular: No symptoms reported Respiratory: No symptoms reported Gastrointestinal: See HPI Genitourinary: See HPI Female Genitourinary: See HPI Musculoskeletal: No symptoms reported Skin: No symptoms reported Hematologic/Lymphatic: No symptoms reported Neurological/Psychological: No symptoms reported Physical Exam - Vital signs Vitals: Temp Pulse Resp BP Pulse Ox 97.9 F 75 17 145/96 H 92 11/11/18 19:59 11/11/18 19:59 11/11/18 19:59 11/11/18 19:59 11/11/18 19:59 - Notes Notes: GENERAL: Alert, interacts well. No acute distress. HEAD: Normocephalic, atraumatic. EYES: Pupils equal, round, and reactive to light. Extraocular movements intact. ENT: Oral mucosa moist, tongue midline. NECK: Full range of motion. Supple. Trachea midline. LUNGS: Clear to auscultation bilaterally, no wheezes, rales, or rhonchi. No respiratory distress. HEART: Regular rate and rhythm. No murmur ABDOMEN: Soft, non-tender. Non-distended. Bowel sounds present in all 4 quadrants. No McBurney's point tenderness, no Mayen sign noted. EXTREMITIES: Moves all 4 extremities spontaneously. No edema, normal radial and dorsalis pedis pulses bilaterally. No cyanosis. BACK: no cervical, thoracic, lumbar midline tenderness. No saddle anesthesia, normal distal neurovascular exam. NEUROLOGICAL: Alert and oriented x3. Normal speech. cranial nerves II through XII grossly intact PSYCH: Normal affect, normal mood. SKIN: Warm, dry, normal turgor. No rashes or lesions noted. Course - Re-evaluation Re-evalutation: 11/12/18 00:55 Patient was initially evaluated by E provider. Orders were placed. Upon my assessment of the patient she is sleeping comfortably, easily arousable with verbal stimuli. Patient voices she no longer has any pain. Patient was given only Zofran in the emergency department. Physical exam the patient's abdomen reveals no pain in any quadrant, she has no CVA tenderness noted bilaterally. Patient's white count is elevated, I have discussed with her potential diagnosis of appendicitis or kidney stones, leukocytosis due to vomiting. Patient wishes to decline CT imaging at this time. Patient voices that she was able to fall asleep and has had this pain intermittently for the last couple of weeks. Patient voices that she overall feels a lot better at this time. I discussed with patient at length return precautions and need for follow-up with primary care provider. At this time will discharge with return precautions and follow-up recommendations. Verbal discharge instructions given a the bedside and opportunity for questions given. Medication warnings reviewed. Patient is in agreement with this plan and has verbalized understanding of return precautions and the need for primary care follow-up in the next 24-72 hours. This medical record was dictated with voice recognizing software. There may be grammatical, syntax errors that are unintended. - Vital Signs Vital signs: Temp Pulse Resp BP Pulse Ox 97.9 F 75 17 145/96 H 92 11/11/18 19:59 11/11/18 19:59 11/11/18 19:59 11/11/18 19:59 11/11/18 19:59 - Laboratory Result Diagrams: 11/11/18 20:55 11/11/18 20:22 Laboratory results interpreted by me: 11/11/18 11/11/18 11/11/18 20:15 20:22 20:55 WBC 18.2 H Lymph % (Auto) 11.0 L Absolute Neuts (auto) 14.6 H Seg Neutrophils % 80.6 H Calcium 10.3 H Urine Protein 30 H Urine Blood LARGE H Discharge - Discharge Clinical Impression: Abdominal pain Qualifiers: Abdominal location: generalized Qualified Code(s): R10.84 - Generalized abdominal pain Nausea & vomiting Qualifiers: Vomiting type: unspecified Vomiting Intractability: non-intractable Qualified Code(s): R11.2 - Nausea with vomiting, unspecified Hematuria Qualifiers: Hematuria type: unspecified type Qualified Code(s): R31.9 - Hematuria, unspecified Condition: Stable Disposition: HOME, SELF-CARE Instructions: Abdominal Pain ([facility]), Vomiting ([facility]), Observation for Appendicitis ([facility]), Antinausea Medication ([facility]) Additional Instructions: As we discussed you have been seen and treated in the emergency department for your abdominal pain and vomiting. Please make sure you follow-up with your primary care provider in the next 24 to 48 hours. Use nausea medication only as needed. Please return to the emergency room for any further concerns. Prescriptions: Promethazine HCl [Phenergan 25 mg Tablet] 1 tab PO Q6H PRN #15 tablet PRN Reason: Forms: Return to Work
[2018-11-12 01:10] VITALS: BP 106/61
== END 2018-11-12 01:24 | disposition home or self-care (01) ==
LOC: ER 19:56
DX: R10.84 Generalized abdominal pain (principal); R11.2 Nausea with vomiting, unspecified; R31.9 Hematuria, unspecified; R10.31 Right lower quadrant pain; F17.200 Nicotine dependence, unspecified, uncomplicated; J45.909 Unspecified asthma, uncomplicated
CPT/HCPCS: 36415; 87086; 83690; 85025; 81025; 80053; 81001; 76705; S0119; 99284

== ENCOUNTER 2018-12-19 09:20 | Emergency (ER) | payer SELFPAY ==
[2018-12-19] MEDS ORDERED: ONDANSETRON 4 MG TAB.RAPDIS PO ONE (09:43)
--- NOTE | 2018-12-19 09:45 | ER Document Report ---
ED Medical Screen (RME) - General Chief Complaint: Abdominal Pain Stated Complaint: NAUSEA/VOMITING Time Seen by Provider: 12/19/18 09:37 Notes: Patient is a 28-year-old female who presents to the emergency department with a chief complaint of abdominal pain, nausea, and vomiting. Patient states that her symptoms started this morning. Patient has a history of ovarian cysts and kidney stones in the past. Last menstrual cycle was last week. Patient states the pain is in her right lower abdomen and radiates to her back. Patient vomited once this morning and still continues to feel nauseated. She is able to keep down fluids. Exam: Mildly tender right lower abdomen. I have greeted and performed a rapid initial assessment of this patient. A comprehensive ED assessment and evaluation of the patient, analysis of test results and completion of medical decision making process will be conducted by an additional ED providers. TRAVEL OUTSIDE OF THE [place] IN LAST 30 DAYS: No - Related Data Allergies/Adverse Reactions: No Known Allergies Allergy (Verified 08/28/18 16:22) Past Medical History - Social History Chew tobacco use (# tins/day): No Frequency of alcohol use: None Drug Abuse: None Pulmonary Medical History: Reports: Hx Asthma Renal/ Medical History: Denies: Hx Peritoneal Dialysis Psychiatric Medical History: Reports: Hx Anxiety, Hx Depression Past Surgical History: Reports: Hx Section - Immunizations Hx Diphtheria, Pertussis, Tetanus Vaccination: Yes Physical Exam - Vital signs Vitals: Temp Pulse Resp BP Pulse Ox 98.1 F 85 14 119/79 98 12/19/18 09:30 12/19/18 09:30 12/19/18 09:30 12/19/18 09:30 12/19/18 09:30 Course - Vital Signs Vital signs: Temp Pulse Resp BP Pulse Ox 98.1 F 85 14 119/79 98 12/19/18 09:30 12/19/18 09:30 12/19/18 09:30 12/19/18 09:30 12/19/18 09:30
[2018-12-19 10:10] LABS: ABSOLUTE BASOPHILS # (AUTO) 0.2 10^3/uL (0.0-0.2); ABSOLUTE EOSINOPHILS # (AUTO) 0.4 10^3/uL (0.0-0.6); ABSOLUTE LYMPHOCYTES (AUTO) 2.6 10^3/uL (0.5-4.7); ABSOLUTE MONOCYTES (AUTO) 0.8 10^3/uL (0.1-1.4); ABSOLUTE NEUT (AUTO) 6.5 10^3/uL (1.7-8.2); BASOPHILS % (AUTO) 1.5 % (0-2); EOSINOPHILS % (AUTO) 4.1 % (0-6); HEMATOCRIT 45.7 % (36.0-47.0); HEMOGLOBIN 15.7 g/dL (12.0-15.5); LYMPHOCYTES % (AUTO) 24.7 % (13-45); MEAN CORPUSCULAR HEMOGLOBIN 29.8 pg (27.0-33.4); MEAN CORPUSCULAR HGB CONC 34.5 g/dL (32.0-36.0); MEAN CORPUSCULAR VOLUME 87 fl (80-97); MONOCYTES % (AUTO) 7.7 % (3-13); PLATELET COUNT 274 10^3/uL (150-450); RED BLOOD COUNT 5.28 10^6/uL (3.72-5.28); TOTAL CELLS COUNTED % (AUTO) 100 %; WHITE BLOOD COUNT 10.4 10^3/uL (4.0-10.5)
[2018-12-19 10:20] LABS: APPEARANCE,URINE CLOUDY; BILIRUBIN,URINE NEGATIVE (NEGATIVE); COLOR,URINE YELLOW; GLUCOSE, URINE NEGATIVE (NEGATIVE); KETONES,URINE NEGATIVE (NEGATIVE); LEUKOCYTE ESTERASE,URINE MODERATE (NEGATIVE); NITRITE,URINE NEGATIVE (NEGATIVE); PROTEIN,URINE 30 mg/dL (NEGATIVE); URINE SPECIFIC GRAVITY 1.019; UROBILINOGEN,URINE NEGATIVE mg/dL (<2.0)
[2018-12-19 10:27] LABS: ALBUMIN 4.7 g/dL (3.5-5.0); ALKALINE PHOSPHATASE 75 U/L (38-126); ANION GAP 9 (5-19); ASPARTATE AMINO TRANSFERASE 27 U/L (14-36); BILIRUBIN,DIRECT 0.1 mg/dL (0.0-0.4); BILIRUBIN,TOTAL 0.5 mg/dL (0.2-1.3); BLOOD UREA NITROGEN 10 mg/dL (7-20); CALCIUM 10.1 mg/dL (8.4-10.2); CARBON DIOXIDE 26 mmol/L (22-30); CHLORIDE 105 mmol/L (98-107); GLUCOSE 98 mg/dL (75-110); POTASSIUM 4.2 mmol/L (3.6-5.0); TOTAL PROTEIN 7.9 g/dL (6.3-8.2)
--- NOTE | 2018-12-19 11:48 | RADIOLOGY REPORT (SQ) ---
EXAM DESCRIPTION: U/S NON OB PEL TV W/DOPPLER COMPLETED DATE/TIME: 12/19/2018 11:24 am REASON FOR STUDY: right lower abd pain COMPARISON: None. TECHNIQUE: Dynamic and static grayscale images acquired of the pelvis via transvaginal approach and recorded on PACS. Additional selected color Doppler and spectral images recorded. LIMITATIONS: None. FINDINGS: UTERUS: The uterus is oriented retroverted and it measures 7.9 x 5.3 x 5.1 cm. The echote xture of the myometrium is homogeneous. There is no uterine mass. ENDOMETRIAL STRIPE: The endometrium measures 8 mm in thickness. CERVIX: No nabothian cysts. RIGHT OVARY AND DOPPLER: The right ovary measures 3.4 x 2.8 x 2.2 cm and on Doppler there is intact a rterial inflow and venous outflow within the ovarian stroma. LEFT OVARY AND DOPPLER: The left ovary measures 4.3 x 2.4 x 2.2 cm on on Doppler there is intact kevyn rial inflow and venous outflow within the ovarian stroma. There is a hypoechoic lesion in the left o vary that measures 2 x 1.3 x 1.2 cm that could represent a functional follicle or cyst. FREE FLUID: None. OTHER: No other finding. IMPRESSION: 1. No abnormality of the uterus and endometrium. 2. 2 x 1.3 x 1.2 cm left ovarian follicle or cyst. There is no evidence of torsion on Doppler. TECHNICAL DOCUMENTATION: JOB ID: [id number] [employer]- All Rights Reserved Rev Reading location - IP/workstation name: [email or web address]
--- NOTE | 2018-12-19 11:52 | RADIOLOGY REPORT (SQ) ---
EXAM DESCRIPTION: U/S RETROPERITON LTD COMPLETED DATE/TIME: 12/19/2018 11:24 am REASON FOR STUDY: back pain; eval stone COMPARISON: None. TECHNIQUE: Dynamic and static grayscale images acquired of the kidneys and bladder and recorded on P ACS. Additional selected color Doppler and spectral images recorded. LIMITATIONS: None. FINDINGS: RIGHT KIDNEY: The right kidney measures 9.7 cm in length. There is an echogenic focus wi thin the renal pelvis that measures 1.1 x 1.1 cm. There is no associated hydronephrosis. LEFT KIDNEY: The left kidney measures 9.8 cm in length. There is no hydronephrosis, calcification o r mass. BLADDER: No masses. OTHER FINDINGS: Increased echogenicity of the hepatic parenchyma compared to the renal parenchyma. IMPRESSION: 1. 1.1 x 1.1 cm echogenic focus within the right renal pelvis could represent a nonobstr uctive calculus. 2. Hepatic steatosis. TECHNICAL DOCUMENTATION: JOB ID: [id number] [employer]- All Rights Reserved Reading location - IP/workstation name: [email or web address]
--- NOTE | 2018-12-19 12:08 | ER Document Report ---
ED General - General Chief Complaint: Abdominal Pain Stated Complaint: NAUSEA/VOMITING Time Seen by Provider: 12/19/18 09:37 Mode of Arrival: Ambulatory Information source: Patient Notes: 28-year-old female presents emergency department with right lower quad abdominal pain that radiates to her back started this morning. Denies trauma, fever vomiting diarrhea. Denies pain with void. Denies vaginal discharge. Reports last menstrual period was 2 weeks ago. Reports the pain is almost gone now. Patient received Phenergan upon arrival. Patient reports history of ovarian cyst and kidney stones. Reports symptoms started this morning. TRAVEL OUTSIDE OF THE [place] IN LAST 30 DAYS: No - HPI Onset: This morning Onset/Duration: Sudden Pain Level: 1 Associated symptoms: None Exacerbated by: Denies Relieved by: Denies Similar symptoms previously: No Recently seen / treated by doctor: No - Related Data Allergies/Adverse Reactions: No Known Allergies Allergy (Verified 08/28/18 16:22) Past Medical History - General Information source: Patient Last Menstrual Period: 2 Weddays ago - Social History Smoking Status: Current Every Day Smoker Cigarette use (# per day): Yes Chew tobacco use (# tins/day): No Frequency of alcohol use: None Drug Abuse: None Occupation: [employer] Lives with: Family Family History: Reviewed & Not Pertinent, DM Patient has suicidal ideation: No Patient has homicidal ideation: No Pulmonary Medical History: Reports: Hx Asthma Renal/ Medical History: Reports: Hx Kidney Stones, Hx Ovarian Cysts. Denies: Hx Peritoneal Dialysis Psychiatric Medical History: Reports: Hx Anxiety, Hx Depression Past Surgical History: Reports: Hx Section - Immunizations Hx Diphtheria, Pertussis, Tetanus Vaccination: Yes Review of Systems - Review of Systems Notes: Review HPI for review of systems., All other systems negative Physical Exam - Vital signs Vitals: Temp Pulse Resp BP Pulse Ox 98.1 F 85 14 119/79 98 12/19/18 09:30 12/19/18 09:30 12/19/18 09:30 12/19/18 09:30 12/19/18 09:30 - General General appearance: Appears well, Alert In distress: None - HEENT Head: Normocephalic, Atraumatic Eyes: Normal Conjunctiva: Normal Extraocular movements intact: Yes Neck: Normal, Supple. No: Lymphadenopathy - Respiratory Respiratory status: No respiratory distress Chest status: Nontender Breath sounds: Normal Chest palpation: Normal - Cardiovascular Rhythm: Regular Heart sounds: Normal auscultation Murmur: No - Abdominal Inspection: Normal Distension: No distension Bowel sounds: Normal Tenderness: Nontender. No: Tender, McBurney's point, Mayen's sign, Guarding, Rebound Organomegaly: No organomegaly - Back Back: Normal. No: CVA tenderness - Extremities General upper extremity: Normal ROM, Normal strength General lower extremity: Normal ROM, Normal strength, Normal weight bearing - Neurological Neuro grossly intact: Yes Cognition: Normal Orientation: AAOx4 [place] Coma Scale Eye Opening: Spontaneous [place] Coma Scale Verbal: Oriented [place] Coma Scale Motor: Obeys Commands [place] Coma Scale Total: 15 Speech: Normal Sensory: Normal - Psychological Associated symptoms: Normal affect, Normal mood - Skin Skin Temperature: Warm Skin Moisture: Dry Skin Color: Normal Course - Re-evaluation Re-evalutation: 12/19/18 12:05 28-year-old female presents emergency department with right lower quad abdominal pain that radiates to her back. Reports history of ovarian cystic kidney stones. Labs unremarkable. Denies pain with void. Denies fever vomiting diarrhea. 12/19/18 12:06 Labs unremarkable. Urine shows moderate blood and leukocytes. Patient denies pain with void. renal ultrasound notes a 1. 1.1 x 1.1 cm echogenic focus within the right renal pelvis could represent a nonobstructive calculus. We will treat patient has kidney stone. Discharged with Flomax instructed on Motrin for pain follow-up with urology. 12/19/18 09:50 12/19/18 09:50 MCV 87 fl (80-97) 12/19/18 09:50 MCH 29.8 pg (27.0-33.4) 12/19/18 09:50 MCHC 34.5 g/dL (32.0-36.0) 12/19/18 09:50 RDW 13.0 % (11.5-14.0) 12/19/18 09:50 Seg Neutrophils % 62.0 % (42-78) 12/19/18 09:50 Chloride 105 mmol/L (98-107) 12/19/18 09:50 Carbon Dioxide 26 mmol/L (22-30) 12/19/18 09:50 Anion Gap 9 (5-19) 12/19/18 09:50 Est GFR ( Amer) > 60 (>60) 12/19/18 09:50 Glucose 98 mg/dL (75-110) 12/19/18 09:50 Calcium 10.1 mg/dL (8.4-10.2) 12/19/18 09:50 Total Bilirubin 0.5 mg/dL (0.2-1.3) 12/19/18 09:50 AST 27 U/L (14-36) 12/19/18 09:50 Alkaline Phosphatase 75 U/L (38-126) 12/19/18 09:50 Total Protein 7.9 g/dL (6.3-8.2) 12/19/18 09:50 Albumin 4.7 g/dL (3.5-5.0) 12/19/18 09:50 Serum HCG, Qual NEGATIVE (NEGATIVE) 12/19/18 09:50 Urine Color YELLOW 12/19/18 09:50 Urine Appearance CLOUDY 12/19/18 09:50 Urine pH 6.0 (5.0-9.0) 12/19/18 09:50 Ur Specific [place] 1.019 12/19/18 09:50 Urine Protein 30 mg/dL (NEGATIVE) H 12/19/18 09:50 Urine Glucose (UA) NEGATIVE mg/dL (NEGATIVE) 12/19/18 09:50 Urine Ketones NEGATIVE mg/dL (NEGATIVE) 12/19/18 09:50 Urine Blood MODERATE (NEGATIVE) H 12/19/18 09:50 Urine Nitrite NEGATIVE (NEGATIVE) 12/19/18 09:50 Ur Leukocyte Esterase MODERATE (NEGATIVE) H 12/19/18 09:50 Urine WBC (Auto) 23 /HPF 12/19/18 09:50 Urine RBC (Auto) 69 /HPF 12/19/18 09:50 Renal Ultrasound 12/19/18 09:42 IMPRESSION: 1. 1.1 x 1.1 cm echogenic focus within the right renal pelvis could represent a nonobstructive calculus. 2. Hepatic steatosis. Transvaginal US 12/19/18 09:42 IMPRESSION: 1. No abnormality of the uterus and endometrium. 2. 2 x 1.3 x 1.2 cm left ovarian follicle or cyst. There is no evidence of torsion on Doppler. 12/19/18 12:07 - Vital Signs Vital signs: Temp Pulse Resp BP Pulse Ox 97.8 F 70 20 102/68 98 12/19/18 12:22 12/19/18 12:22 12/19/18 12:22 12/19/18 12:22 12/19/18 12:22 - Laboratory Result Diagrams: 12/19/18 09:50 12/19/18 09:50 Laboratory results interpreted by me: 12/19/18 12/19/18 09:50 09:50 Hgb 15.7 H Urine Protein 30 H Urine Blood MODERATE H Ur Leukocyte Esterase MODERATE H - Diagnostic Test Radiology reviewed: Image reviewed, Reports reviewed Discharge - Discharge Clinical Impression: Flank pain, Kidney stone on right side Abdominal pain Qualifiers: Abdominal location: right lower quadrant Qualified Code(s): R10.31 - Right low er quadrant pain Condition: Stable Disposition: HOME, SELF-CARE Instructions: Abdominal Pain ([facility]), Antinausea Medication ([facility]), Flank Pain ([facility]), Flomax ([facility]), Ibuprofen (General) ([facility]), Kidney Stone ([facility]) Additional Instructions: *You have been evaluated for abdominal pain, flank pain , kidney stone *Take medication as prescribed *Follow up with a primary care provider within one week for recheck *Return to ED for worsening condition, changes, needs *Return to ED if not better in 24 hours Prescriptions: Tamsulosin HCl [Flomax 0.4 mg Cap.sr] 0.4 mg PO DAILY #7 cap.sr.24h Ibuprofen [Ibu] 800 mg PO TID #15 tablet Forms: Return to Work
[2018-12-19] MEDS ORDERED: TAMSULOSIN HCL 0.4 MG CAP.SR.24H PO ONE (12:11)
[2018-12-19] MEDS ORDERED: ONDANSETRON ODT 4 MG TAB (6 TAB/ER DISP) PO PRN (12:11)
[2018-12-19 12:24] VITALS: BP 102/68
== END 2018-12-19 12:24 | disposition home or self-care (01) ==
LOC: ER 09:20
DX: N20.0 Calculus of kidney (principal); R31.9 Hematuria, unspecified; K76.0 Fatty (change of) liver, not elsewhere classified; R10.31 Right lower quadrant pain; R10.9 Unspecified abdominal pain; F17.210 Nicotine dependence, cigarettes, uncomplicated; J45.909 Unspecified asthma, uncomplicated; Z87.42 Personal history of other diseases of the female genital tract
CPT/HCPCS: 36415; 84703; 85025; 80053; 81001; 76775; 76830; 93976; S0119; 87086; 99284

== ENCOUNTER 2019-01-04 09:38 | Emergency (ER) | payer SELFPAY ==
[2019-01-04 10:36] LABS: APPEARANCE,URINE CLEAR; BILIRUBIN,URINE NEGATIVE (NEGATIVE); COLOR,URINE STRAW; GLUCOSE, URINE NEGATIVE (NEGATIVE); KETONES,URINE NEGATIVE (NEGATIVE); LEUKOCYTE ESTERASE,URINE NEGATIVE (NEGATIVE); NITRITE,URINE NEGATIVE (NEGATIVE); PROTEIN,URINE NEGATIVE (NEGATIVE); URINE SPECIFIC GRAVITY 1.006; UROBILINOGEN,URINE NEGATIVE mg/dL (<2.0)
[2019-01-04] MEDS ORDERED: TRAMADOL HCL 50 MG TABLET PO ONE (11:57)
--- NOTE | 2019-01-04 12:40 | RADIOLOGY REPORT (SQ) ---
EXAM DESCRIPTION: CT ABD/PELVIS NO ORAL OR IV COMPLETED DATE/TIME: 01/04/2019 12:30 pm REASON FOR STUDY: lower pelvic pain COMPARISON: Renal ultrasound dated 12/19/2018 TECHNIQUE: CT scan of the abdomen and pelvis performed without intravenous or oral contrast. Images reviewed with lung, soft tissue, and bone windows. Reconstructed coronal and sagittal MPR images revi ewed. All images stored on PACS. All CT scanners at this facility use dose modulation, iterative reconstruction, and/or weight based d osing when appropriate to reduce radiation dose to as low as reasonably achievable (ALARA). [facility]: Dose Right [facility]: CareDose [facility]: Dose Right [facility]: Teradose 4D [facility]: Compass-EOS RADIATION DOSE: mGy. LIMITATIONS: None. FINDINGS: LOWER CHEST: No significant findings. No nodules or infiltrates. NON-CONTRASTED LIVER, SPLEEN, ADRENALS: Evaluation limited by lack of IV contrast. No identified sign ificant masses. PANCREAS: No masses. No peripancreatic inflammatory changes. GALLBLADDER: No identified stones by CT criteria. No inflammatory changes to suggest cholecystitis. RIGHT KIDNEY AND URETER: No suspicious masses. Assessment limited by lack of IV contrast. There is an approximately 8 mm right UPJ stone. Hounsfield units measure 751. There is mild right-sided hyd ronephrosis. The ureter is decompressed. LEFT KIDNEY AND URETER: No suspicious masses. Assessment limited by lack of IV contrast. There are small nonobstructing left renal calculi. No hydronephrosis or hydroureter. AORTA AND RETROPERITONEUM: No aneurysm. No retroperitoneal masses or adenopathy. BOWEL AND PERITONEAL CAVITY: No obvious masses or inflammatory changes. No free fluid. APPENDIX: Normal. PELVIS, BLADDER, AND ABDOMINAL WALL:There is a trace amount of free fluid the pelvis. BONES: No significant findings. OTHER: No other significant finding. IMPRESSION: 8 mm obstructing right UPJ stone. Small amount of free fluid in the pelvis. Nonobstructing left renal calculi. COMMENT: Quality ID # [id number]: Final reports with documentation of one or more dose reduction techniques (e.g., Automated exposure control, adjustment of the mA and/or kV according to patient size, use of iterative reconstruction technique) TECHNICAL DOCUMENTATION: JOB ID: [id number] [employer]- All Rights Reserved Reading location - IP/workstation name: [id number]
[2019-01-04] MEDS ORDERED: NORMAL SALINE 1000 ML 1,000 ML IV ONE (13:25)
[2019-01-04] MEDS ORDERED: ONDANSETRON HCL INJ/PF 4 MG/2 ML SDV IV ONE (13:25)
[2019-01-04] MEDS ORDERED: KETOROLAC TROMETHAMINE INJ/PF 30 MG/1 ML SDV IV ONE (13:25)
[2019-01-04] MEDS ORDERED: MORPHINE SULFATE 10 MG/ML INJ IV ONE (13:26)
--- NOTE | 2019-01-04 14:41 | ER Document Report ---
ED General - General Chief Complaint: Nausea/Vomiting/Diarrhea Stated Complaint: VOMITING Time Seen by Provider: 01/04/19 09:49 Mode of Arrival: Ambulatory Information source: Patient TRAVEL OUTSIDE OF THE [place] IN LAST 30 DAYS: No - HPI Notes: Patient presents lower pelvic pain. She states she has had this for approximately 2 days. It is been constant. Nothing makes it better or worse. It does seem to radiate around her pelvis. It is a cramping sensation. She denies any vaginal discharge or bleeding. No dysuria urgency or frequency. States she does have a history of kidney stones but does not believe this feels like a kidney stone. She states she also has probably ovarian disease and this feels like it may be that. Patient denies any shortness of breath. No cough cold or congestion. No fevers or rashes. - Related Data Allergies/Adverse Reactions: shellfish derived Allergy (Verified 01/04/19 09:46) Past Medical History - General Information source: Patient - Social History Smoking Status: Current Every Day Smoker Chew tobacco use (# tins/day): No Frequency of alcohol use: Occasional Drug Abuse: None Family History: Reviewed & Not Pertinent, DM Patient has suicidal ideation: No Patient has homicidal ideation: No Pulmonary Medical History: Reports: Hx Asthma Renal/ Medical History: Reports: Hx Kidney Stones, Hx Ovarian Cysts. Denies: Hx Peritoneal Dialysis Psychiatric Medical History: Reports: Hx Anxiety, Hx Depression Past Surgical History: Reports: Hx Section - Immunizations Hx Diphtheria, Pertussis, Tetanus Vaccination: Yes Review of Systems - Review of Systems Constitutional: Malaise, Weakness. denies: Chills, Fever Cardiovascular: denies: Chest pain, Palpitations Respiratory: denies: Cough, Short of breath Skin: denies: Change in color, Lesions -: Yes All other systems reviewed and negative Physical Exam - Vital signs Vitals: Temp Pulse BP Pulse Ox 98.3 F 58 L 118/77 99 01/04/19 10:22 01/04/19 10:22 01/04/19 10:22 01/04/19 10:22 Interpretation: Normal - General General appearance: Appears well, Alert In distress: None - HEENT Head: Normocephalic, Atraumatic Eyes: Normal Pupils: PERRL - Respiratory Respiratory status: No respiratory distress Chest status: Nontender Breath sounds: Normal Chest palpation: Normal - Cardiovascular Rhythm: Regular Heart sounds: Normal auscultation Murmur: No - Abdominal Inspection: Normal Distension: No distension Bowel sounds: Normal Tenderness: Tender - Mild diffuse tenderness to palpation of bilateral lower quadrants. Organomegaly: No organomegaly - Back Back: Normal, Nontender - Extremities General upper extremity: Normal inspection, Nontender, Normal color, Normal ROM, Normal temperature General lower extremity: Normal inspection, Nontender, Normal color, Normal ROM, Normal temperature, Normal weight bearing. No: Yohannes's sign - Neurological Neuro grossly intact: Yes Cognition: Normal Orientation: AAOx4 Conway Coma Scale Eye Opening: Spontaneous Conway Coma Scale Verbal: Oriented Elizabeth Coma Scale Motor: Obeys Commands Elizabeth Coma Scale Total: 15 Speech: Normal Motor strength normal: LUE, RUE, LLE, RLE Sensory: Normal - Psychological Associated symptoms: Normal affect, Normal mood - Skin Skin Temperature: Warm Skin Moisture: Dry Skin Color: Normal Course - Re-evaluation Re-evalutation: 01/04/19 14:38 Patient presents with bilateral lower abdominal pelvic pain. She does have an 8 mm stone on the right. She has a urine which has blood in it but no white blood cells. She has no evidence of infection. She is not toxic appearing. Her vital signs are normal. After IV pain medication she states she does feel better and is ready for discharge home. I have instructed her about the need to follow-up as an outpatient because she most likely will not pass the stone on her own. I have informed her that if she is unable to get an appointment with urologist she is welcome to return here to the emergency department for us to do a reevaluation. - Vital Signs Vital signs: Temp Pulse Resp BP Pulse Ox 98.3 F 58 L 118/77 99 01/04/19 10:22 01/04/19 10:22 01/04/19 10:22 01/04/19 10:22 - Laboratory Laboratory results interpreted by me: 01/04/19 10:02 Urine Blood LARGE H - Diagnostic Test Radiology reviewed: Image reviewed, Reports reviewed Discharge - Discharge Clinical Impression: Right ureteral stone Condition: Stable Disposition: HOME, SELF-CARE Instructions: Kidney Stone ([facility]) Additional Instructions: Please call Dr. Sanders as soon as possible to arrange follow-up. If you are unable to see Dr. Sanders and you have any further problems or concerns please feel free to return to the emergency department Prescriptions: Hydrocodone/Acetaminophen [[place] 5-325 mg Tablet] 1 tab PO Q6 PRN 3 Days #12 tablet PRN Reason: Forms: Return to Work Referrals: FIDEL SANDERS MD [NO LOCAL MD] - Follow up tomorrow
[2019-01-04 14:51] VITALS: BP 106/61
== END 2019-01-04 15:31 | disposition home or self-care (01) ==
LOC: ER 09:38
DX: N20.1 Calculus of ureter (principal); R11.2 Nausea with vomiting, unspecified; R19.7 Diarrhea, unspecified; F17.200 Nicotine dependence, unspecified, uncomplicated
CPT/HCPCS: 81025; 81001; 74176; J1885; J2270; J2405; J7030